=== PATIENT | female | born 1960 | race Caucasian/White ===

== ENCOUNTER 2020-05-06 01:33 | Emergency (ER) | payer OTHER ==
[~2020-05-06] VITALS: Ht 154.9 cm; Wt 45.4 kg
[~2020-05-06 01:33] MED LIST: KEFLEX500 MG PO
[2020-05-06 01:38] VITALS: BP 182/91
[2020-05-06] MEDS ORDERED: NORCO 5-325 TA1 EACH PO (05:34)
== END 2020-05-06 05:45 | disposition home or self-care (01) ==
LOC: ED 01:33
DX: S52.612A Displaced fracture of left ulna styloid process, initial encounter for closed fracture (principal); S52.502A Unspecified fracture of the lower end of left radius, initial encounter for closed fracture; I10 Essential (primary) hypertension; E11.9 Type 2 diabetes mellitus without complications; J44.9 Chronic obstructive pulmonary disease, unspecified; W18.39XA Other fall on same level, initial encounter; Y93.89 Activity, other specified; Y92.89 Other specified places as the place of occurrence of the external cause; Y99.8 Other external cause status